=== PATIENT | male | born 1960 | race African-American/Black ===

== ENCOUNTER 2018-09-09 10:04 | Inpatient (IN) | payer OTHER ==
[2018-09-09 11:11] VITALS: BMI 27.1
--- NOTE | 2018-09-09 11:30 | HP ---
CIWA Score Nausea/Vomitin-Mild Nausea/No Vomiting Muscle Tremors: 2 Anxiety: 3 Agitation: 0-Normal Activity Paroxysmal Sweats: 2 Orientation: 0-Oriented Tacttile Disturbances: 0-None Auditory Disturbances: 0-None Visual Disturbances: 0-None Headache: 2-Mild CIWA-Ar Total Score: 10 - Admission Criteria OASAS Guidelines: Admission for Medically Managed Detox: Requires at least one of the followin. CIWA greater than 12 2. Seizures within the past 24 hours 3. Delirium tremens within the past 24 hours 4. Hallucinations within the past 24 hours 5. Acute intervention needed for co occurring medical disorder 6. Acute intervention needed for co occurring psychiatric disorder 7. Severe withdrawal that cannot be handled at a lower level of care (continued vomiting, continued diarrhea, abnormal vital signs) requiring intravenous medication and/or fluids 8. 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 heroin use since age 27 denies IVDU max daily use 30 bags , in [facility] since 2017 in [place] currently 100 mg @ [facility] , [place] 2 [place] max dose 50 mg tapered off due to financial concerns , had 2 , latest use yesterday 2 bags cocaine since age 27 , current use 200 $ /week via inhalation , latest use Wednesday finances habit through family who are selling drugs and give him free cocaine and heroin . Purchases etoh from SSD check . tobacco : 12 cigs/day PMHX : hld , MD 2006 x1 , CAD , planning to see cardiology 09/21/18 PSHx : stenting 2006 in [place] [facility] PSych : denies current SI / HI meds : denies SHx: lives alone has own apt . Exam Limitations: No Limitations - Ebola screening Have you traveled outside of the country in the last 21 days: No Have you had contact with anyone from an Ebola affected area: No Have you been sick,other than usual withdrawal symptoms: No Do you have a fever: No - Review of Systems Constitutional: See HPI EENT: reports: Other (myopia, presbyopia , upper and lower dentures) Respiratory: reports: No Symptoms reported Cardiac: reports: No Symptoms Reported GI: reports: See HPI : reports: No Symptoms Reported Musculoskeletal: reports: No Symptoms Reported Integumentary: reports: No Symptoms Reported Neuro: reports: See HPI Endocrine: reports: No Symptoms Reported Psychiatric: reports: Orientated x3 Patient History - Smoking Cessation Smoking history: Current every day smoker Have you smoked in the past 12 months: Yes Hx Chewing Tobacco Use: No Initiated information on smoking cessation: No - Substances Abused Heroin Route: Inhalation Frequency: 3-6 times per week Amount used: 3 bags Age of first use: 27 Date of Last Use: 09/14/18 Cocaine Route: Inhalation Frequency: Daily Amount used: $30 Age of first use: 27 Date of Last Use: 09/07/18 Alcohol-beer/vodka Route: Oral Frequency: Daily Amount used: 2-6 pks./1 pt. Age of first use: 15 Date of Last Use: 09/09/18 Family Disease History - Family Disease History Family History: Denies Admission Physical Exam [facility] - Vital Signs Vital Signs: Vital Signs - 24 hr 09/09/18 11:08 Temperature 98.2 F Pulse Rate 61 Respiratory 18 Rate Blood Pressure 141/67 - Physical General Appearance: Yes: No Apparent Distress HEENTM: Yes: EOMI, Hearing grossly Normal, Normocephalic, Normal Voice Respiratory: Yes: Chest Non-Tender, Lungs Clear, Normal Breath Sounds Neck: Yes: No masses,lesions,Nodules, Trachea in good position Cardiology: Yes: Regular Rhythm, Regular Rate, S1, S2 Abdominal: Yes: Normal Bowel Sounds, Non Tender, Soft Genitourinary: Yes: Within Normal Limits Extremities: Yes: Normal Capillary Refill, Non-Tender Neurological: Yes: Motor Strength 5/5 Integumentary: Yes: Normal Color - Diagnostic (1) Alcohol dependence Current Visit: Yes Status: Acute Qualifiers: Substance use status: in withdrawal (2) Cocaine dependence Current Visit: Yes Status: Chronic Qualifiers: Substance use status: uncomplicated Qualified Code(s): F14.20 - Cocaine dependence, uncomplicated (3) Opioid dependence on agonist therapy Current Visit: Yes Status: Chronic (4) Nicotine dependence Current Visit: Yes Status: Chronic Qualifiers: Nicotine product type: cigarettes (5) Old MD (myocardial infarction) Current Visit: Yes Status: Chronic [facility]HS Breath Alcohol Content Breath Alcohol Content: 0.017 Urine Drug Screen - Results Drug Screen Negative: No Urine Drug Screen Results: MARTHA-Cocaine, OPI-Opiates, MTD-Methadone Inpatient Rehab Admission - Rehab Decision to Admit Inpatient rehab admission?: No
[2018-09-09] MEDS ORDERED: MAGNESIUM HYDROX 2400MG/30ML ORAL SUSPENSION 30 ML CUP PO PRN (11:35)
[2018-09-09] MEDS ORDERED: IBUPROFEN 400 MG TABLET (FP) PO PRN (11:35)
[2018-09-09] MEDS ORDERED: MAG HYDROX/AL HYDROX/SIMETH 30 ML UNIT-DOSE CUP PO PRN (11:35)
[2018-09-09] MEDS ORDERED: MAGNESIUM CITRATE 300 ML BOTTLE PO PRN (11:35)
[2018-09-09] MEDS ORDERED: MENTHOL/PHENOL 1 EACH UD MM PRN (11:35)
[2018-09-09] MEDS ORDERED: NICOTINE POLACRILEX 2 MG GUM BUC PRN (11:35)
[2018-09-09] MEDS ORDERED: ACETAMINOPHEN 325 MG TABLET (FP) PO PRN (11:35)
[2018-09-09] MEDS ORDERED: guaiFENesin/D-METHORPHAN HB 10 ML UNIT-DOSE CUPS PO PRN (11:35)
[2018-09-09] MEDS ORDERED: P-EPHED 60MG/TRIPROLIDI 2.5MG TABLET PO PRN (11:35)
[2018-09-09] MEDS: ASPIRIN 81 MG CHEWABLE TABLETS PO SCH (13:35)
[2018-09-09] MEDS: chlordiazePOXIDE HCL 25 MG CAPSULE PO PRN (13:35)
[2018-09-09] MEDS: NICOTINE 14 MG/24 HOURS TOPICAL PATCH TD SCH (15:04)
[2018-09-09] MEDS: chlordiazePOXIDE HCL 25 MG CAPSULE PO SCH ×2 (17:14→23:31)
[2018-09-09] MEDS ORDERED: MELATONIN 5 MG TABLETS PO PRN (22:00)
[2018-09-09] MEDS: THIAMINE HCL 100 MG TABLET (FP) PO SCH (23:31)
[2018-09-10] MEDS: chlordiazePOXIDE HCL 25 MG CAPSULE PO SCH ×2 (05:39→10:10)
[2018-09-10] MEDS ORDERED: METHADONE HCL 10 MG TABLET PO SCH (06:00)
[2018-09-10] MEDS ORDERED: METHADONE HCL 10 MG TABLET ONE ×2 (06:02→06:09)
[2018-09-10] MEDS ORDERED: METHADONE HCL 40 MG DISPERSABLE TABLET ONE ×2 (06:02→06:09)
[2018-09-10] MEDS: METHADONE 80 MG, METHADONE 20 MG PO SCH (06:10)
--- NOTE | 2018-09-10 09:22 | PN ---
[facility] CIWA - CIWA Score Nausea/Vomitin-No Nausea/No Vomiting Muscle Tremors: None Anxiety: 0-No Anxiety, at Ease Agitation: 1-Slight > Activity Paroxysmal Sweats: 1-Minimal Palms Moist Orientation: 0-Oriented Tacttile Disturbances: 0-None Auditory Disturbances: 0-None Visual Disturbances: 0-None Headache: 0-None Present CIWA-Ar Total Score: 2 BHS Progress Note (SOAP) Subjective: pt states feeling fine- doing well with alcohol detox protocol, on methadone MAT O: Vital Signs - 24 hr 09/09/18 09/09/18 09/09/18 11:08 13:50 16:52 Temperature 98.2 F 97.9 F 98.2 F Pulse Rate 61 61 64 Respiratory 18 18 19 Rate Blood Pressure 141/67 125/91 128/92 09/09/18 09/10/18 09/10/18 21:36 03:30 06:00 Temperature 98.1 F 97.7 F Pulse Rate 58 L 61 Respiratory 18 18 18 Rate Blood Pressure 116/63 123/70 a/p: continue alcohol detox protocol- pt doing well methadone MAT labs pending
[2018-09-10] MEDS: PRENATAL VITAMINS W/ FOLIC ACID TABLET (FP) PO SCH (10:09)
[2018-09-10] MEDS: ASPIRIN 81 MG CHEWABLE TABLETS PO SCH (10:09)
[2018-09-10] MEDS: NICOTINE 14 MG/24 HOURS TOPICAL PATCH TD SCH (10:11)
[2018-09-10] MEDS: NICOTINE 7 MG/24 HOURS TOPICAL PATCH TD SCH (10:11)
[2018-09-10 11:30] LABS: ALBUMIN 3.5 g/dl (3.4-5.0); ALK PHOS 90 U/L (45-117); ANION GAP 5 MMOL/L (8-16); BILIRUBIN,TOTAL 0.2 mg/dL (0.2-1); BLOOD UREA NITROGEN 15 mg/dL (7-18); CALCIUM 8.6 mg/dL (8.5-10.1); CHLORIDE 104 mmol/L (98-107); CO2 28 mmol/L (21-32); CREATININE 1.1 mg/dL (0.55-1.3); GLUCOSE,RANDOM 72 mg/dL (74-106); POTASSIUM 4.3 mmol/L (3.5-5.1); SGOT/AST 20 U/L (15-37); SGPT/ALT 16 U/L (13-61); SODIUM 137 mmol/L (136-145); TOT PROT 7.4 g/dl (6.4-8.2)
[2018-09-10 11:46] LABS: HEMATOCRIT 36.7 % (35.4-49); HEMOGLOBIN 12.3 GM/dL (11.7-16.9); MCH 31.2 pg (25.7-33.7); MCHC 33.4 g/dl (32.0-35.9); MEAN CELL VOLUME 93.6 fl (80-96); MEAN PLT VOLUME 9.6 fl (7.5-11.1); PLATELET COUNT 226 K/MM3 (134-434); RBC 3.93 M/mm3 (4.00-5.60); RDW 16.2 % (11.9-15.9); WHITE BLOOD COUNT 6.9 K/mm3 (4.0-10.0)
[2018-09-10] MEDS: chlordiazePOXIDE 5 MG CAPSULE PO SCH ×2 (20:19→23:18)
[2018-09-10] MEDS: chlordiazePOXIDE HCL 25 MG CAPSULE PO PRN (22:48)
[2018-09-10] MEDS: THIAMINE HCL 100 MG TABLET (FP) PO SCH (22:48)
[2018-09-11] MEDS ORDERED: METHADONE HCL 10 MG TABLET ONE (04:00)
[2018-09-11] MEDS ORDERED: METHADONE HCL 40 MG DISPERSABLE TABLET ONE (04:00)
[2018-09-11] MEDS: chlordiazePOXIDE 5 MG CAPSULE PO SCH ×2 (06:07→10:31)
[2018-09-11] MEDS: METHADONE 80 MG, METHADONE 20 MG PO SCH (06:08)
[2018-09-11] MEDS: PRENATAL VITAMINS W/ FOLIC ACID TABLET (FP) PO SCH (10:30)
[2018-09-11] MEDS: NICOTINE 14 MG/24 HOURS TOPICAL PATCH TD SCH (10:30)
[2018-09-11] MEDS: ASPIRIN 81 MG CHEWABLE TABLETS PO SCH (10:32)
[2018-09-11] MEDS: NICOTINE 7 MG/24 HOURS TOPICAL PATCH TD SCH (10:34)
--- NOTE | 2018-09-11 13:48 | PN ---
[facility] CIWA - CIWA Score Nausea/Vomitin-Mild Nausea/No Vomiting Muscle Tremors: 3 Anxiety: 3 Agitation: 3 Paroxysmal Sweats: 3 Orientation: 0-Oriented Tacttile Disturbances: 0-None Auditory Disturbances: 0-None Visual Disturbances: 0-None Headache: 0-None Present CIWA-Ar Total Score: 13 S Progress Note (SOAP) Subjective: Interrupted sleep, anxious Objective: 09/11/18 13:46 Last Vital Signs Temp Pulse Resp BP Pulse Ox 97.6 F 60 18 112/71 09/11/18 12:26 09/11/18 12:26 09/11/18 12:26 09/11/18 12:26 Laboratory Tests 09/10/18 09/10/18 09/10/18 05:45 05:45 05:45 WBC 6.9 RBC 3.93 L Hgb 12.3 Hct 36.7 MCV 93.6 MCH 31.2 MCHC 33.4 RDW 16.2 H Plt Count 226 MPV 9.6 Sodium 137 Potassium 4.3 Chloride 104 Carbon Dioxide 28 Anion Gap 5 L BUN 15 Creatinine 1.1 Creat Clearance w eGFR > 60 Random Glucose 72 L Calcium 8.6 Total Bilirubin 0.2 AST 20 ALT 16 Alkaline Phosphatase 90 Total Protein 7.4 Albumin 3.5 RPR Titer Nonreactive Labs reviewed Assessment: 09/11/18 13:47 Withdrawal symptoms Plan: Continue detox Encouraged PO water intake
[2018-09-11] MEDS: chlordiazePOXIDE HCL 10 MG CAPSULE PO SCH ×2 (20:55→22:09)
[2018-09-11] MEDS: THIAMINE HCL 100 MG TABLET (FP) PO SCH (22:09)
[2018-09-12] MEDS ORDERED: METHADONE HCL 40 MG DISPERSABLE TABLET ONE (02:43)
[2018-09-12] MEDS ORDERED: METHADONE HCL 10 MG TABLET ONE (02:44)
[2018-09-12] MEDS: METHADONE 80 MG, METHADONE 20 MG PO SCH (05:10)
[2018-09-12] MEDS: chlordiazePOXIDE HCL 10 MG CAPSULE PO SCH ×2 (05:11→12:01)
[2018-09-12] MEDS: ASPIRIN 81 MG CHEWABLE TABLETS PO SCH (10:40)
[2018-09-12] MEDS: NICOTINE 14 MG/24 HOURS TOPICAL PATCH TD SCH (10:40)
[2018-09-12] MEDS: PRENATAL VITAMINS W/ FOLIC ACID TABLET (FP) PO SCH (10:40)
[2018-09-12] MEDS: NICOTINE 7 MG/24 HOURS TOPICAL PATCH TD SCH (10:41)
--- NOTE | 2018-09-12 12:32 | DS ---
[facility] Detox Discharge Summary Admission Date: 09/09/18 Discharge Date: 09/12/18 - History Present History: Alcohol Dependence, Cocaine Dependence - Physical Exam Results Vital Signs: Vital Signs Temperature 97.7 F 09/12/18 10:26 Pulse Rate 72 09/12/18 10:26 Respiratory Rate 18 09/12/18 10:26 Blood Pressure 142/85 09/12/18 10:26 O2 Sat by Pulse Oximetry (%) - Treatment Hospital Course: Detox Protocol Followed, Detoxed Safely, Responded well, Discharged Condition Good, Rehab Referral Accepted - Medication Discharge Medications: Ambulatory Orders Methadone [Dolophine -] 100 mg PO DAILY 09/09/18 - Diagnosis (1) Alcohol dependence with uncomplicated withdrawal Current Visit: Yes Status: Chronic (2) CAD (coronary artery disease) Current Visit: Yes Status: Chronic (3) Cocaine dependence Current Visit: Yes Status: Chronic Qualifiers: Substance use status: uncomplicated Qualified Code(s): F14.20 - Cocaine dependence, uncomplicated (4) Nicotine dependence Current Visit: Yes Status: Chronic Qualifiers: Nicotine product type: cigarettes Substance use status: uncomplicated Qualified Code(s): F17.210 - Nicotine dependence, cigarettes, uncomplicated (5) Old NE (myocardial infarction) Current Visit: No Status: Chronic - AMA Did Patient Leave Against Medical Advice: No (referred to [facility] inpatient rehab)
[2018-09-12 13:23] VITALS: BP 112/65; PULSE 70; TEMP 98.1
== END 2018-09-12 02:40 | disposition home or self-care (01) | DRG 773 ==
LOC: YASAS 10:04 → Y6N 12:34
PROVIDERS: ADMIT Surgery; ATTEND Surgery
PROC: HZ2ZZZZ Detoxification Services for Substance Abuse Treatment (ICD-10-PCS; principal; 2018-09-09)
DX: F10.230 Alcohol dependence with withdrawal, uncomplicated (principal); F11.20 Opioid dependence, uncomplicated; F14.20 Cocaine dependence, uncomplicated; F17.210 Nicotine dependence, cigarettes, uncomplicated; I25.10 Atherosclerotic heart disease of native coronary artery without angina pectoris; I25.2 Old myocardial infarction; Z95.5 Presence of coronary angioplasty implant and graft
CPT/HCPCS: 36415; 80053; 85027; 86593